=== PATIENT | male | born 1990 | race Caucasian/White ===

== ENCOUNTER 2016-08-31 17:01 | Emergency (ER) | payer BC ==
[2016-08-31 17:50] VITALS: BP 143/63
--- NOTE | 2016-08-31 18:14 | UC ---
Complaint Male HPI - HPI Summary HPI Summary: 26 yo male with 2/10 right testicular pain x 2 days no new partner no dysuria or urethral d/c works for [employer] - History of Current Complaint Chief Complaint: UCGU Stated Complaint: PERSONAL Time Seen by Provider: 08/31/16 18:04 Hx Obtained From: Patient Onset/Duration: Gradual Onset, Lasting Days Timing: Constant Severity Initially: Mild Severity Currently: Mild Pain Intensity: 2 Pain Scale Used: 0-10 Numeric Location: Testicle - posterior right Character: Constant Pressure - dull ache Aggravating Factor(s): Palpation Alleviating Factor(s): Nothing Associated Signs And Symptoms: Positive: Negative - Allergies/Home Medications Allergies/Adverse Reactions: Allergies Allergy/AdvReac Type Severity Reaction Status Date / Time environmental Allergy Congestion Uncoded 08/31/16 17:43 PMH/Surg Hx/FS Hx/Imm Hx Previously Healthy: Yes Endocrine History Of: Denies: Diabetes, Thyroid Disease, Hyperthyroidism, Hypothyroidism, Dyslipidemia Cardiovascular History Of: Denies: Cardiac Disorders, Hypertension, Pacemaker/ICD, Myocardial Infarction , Congestive Heart Failure, Atrial Fibrillation, Deep Vein Thrombosis, Bleeding Disorders Respiratory History Of: Denies: COPD, Asthma, Bronchitis, Pneumonia, Pulmonary Embolism GI/ History Of: Denies: Gastroesophageal Reflux, Ulcer, Gastrointestinal Bleed, Gall Bladder Disease, Kidney Stones, Diverticulitis, Renal Disease, Urosepsis Neurological History Of: Denies: TIA, CVA, Dementia, Seizures, Migraine Psychological History Of: Denies: Anxiety, Depression, Bipolar Disorder, Schizophrenia, Post Traumatic Stress Disorder Cancer History Of: Denies: Lung Cancer, Colorectal Cancer, Breast Cancer, Prostate Cancer, Cervical Cancer Other History Of: Negative For: HIV, Hepatitis B, Hepatitis C, Anticoagulant Therapy - Surgical History Surgical History: Yes Surgery Procedure, Year, and Place: right ACL 2010 or - Family History Known Family History: Negative: Cardiac Disease, Hypertension - Social History Alcohol Use: Occasionally Substance Use Type: None Smoking Status (MU): Former Smoker Review of Systems Constitutional: Negative Skin: Negative Eyes: Negative ENT: Negative Respiratory: Negative Cardiovascular: Negative Gastrointestinal: Negative Genitourinary: Negative Motor: Negative Neurovascular: Negative Musculoskeletal: Negative Neurological: Negative Psychological: Negative All Other Systems Reviewed And Are Negative: Yes Physical Exam Triage Information Reviewed: Yes Appearance: Well-Appearing, No Pain Distress, Well-Nourished Vital Signs: Initial Vital Signs Temp 98.8 F 08/31/16 17:34 Pulse 70 08/31/16 17:34 Resp 20 08/31/16 17:34 BP 143/63 08/31/16 17:34 Pulse Ox 99 08/31/16 17:34 Vital Signs Reviewed: Yes Eyes: Positive: Conjunctiva Clear ENT: Positive: Hearing grossly normal. Negative: Nasal congestion, Nasal drainage, Trismus, Muffled/hoarse voice Neck: Positive: Supple Respiratory: Positive: Normal breath sounds, No respiratory distress, No accessory muscle use, Respiratory distress Cardiovascular: Positive: RRR, No Murmur Abdomen Description: Positive: Other: - testicles- no masses normal lie and orientation right testicle tender epididymis. Negative: CVA Tenderness (R), CVA Tenderness (L), Hernia @ Musculoskeletal: Positive: ROM Intact, No Edema Neurological Exam: Normal Psychological Exam: Normal Complaint Male Course/Dx - Differential Dx/Diagnosis Provider Diagnoses: right epididymitis Discharge - Discharge Plan Condition: Stable Disposition: HOME Prescriptions: DOXYcycline CAP(*) [DOXYcycline 100MG CAP(*)] 100 mg PO BID #14 cap Patient Education Materials: Epididymitis (ED) Referrals: No Primary Care Phys,NOPCP [Primary Care Provider] - Additional Instructions: advil 3 4x day with food as needed recheck for worsening symptoms or if not completely better next week
== END 2016-08-31 18:30 | disposition home or self-care (01) ==
LOC: UCCORT 17:01
DX: N45.1 Epididymitis (principal); Z87.891 Personal history of nicotine dependence
CPT/HCPCS: 87491; 87591; 99212; G0463

== ENCOUNTER 2018-07-02 11:39 | Emergency (ER) | payer OTHER ==
[2018-07-02 12:48] VITALS: BP 149/76
--- NOTE | 2018-07-02 12:50 | UC ---
Knee Pain HPI - HPI Summary HPI Summary: Patient stepped out of a truck, right knee gave out. now has pain surrounding the joint and slight swelling can bear weight but painful - History of Current Complaint Stated Complaint: WC - RIGHT KNEE PAIN Time Seen by Provider: 07/02/18 12:44 Hx Obtained From: Patient Onset/Duration: Sudden Onset, Lasting Hours Severity Initially: Severe Severity Currently: Moderate Character: Aching, Stiffness Aggravating Factor(s): Movement, Weight Bearing, Prolonged Standing, Stairs Alleviating Factor(s): Rest Associated Signs And Symptoms: Positive: Swelling - Allergies/Home Medications Allergies/Adverse Reactions: Allergies Allergy/AdvReac Type Severity Reaction Status Date / Time environmental Allergy Congestion Uncoded 07/02/18 12:41 Home Medications: Home Medications Ibuprofen TAB* [Advil TAB*] 600 mg PO Q6H PRN 07/02/18 [History Confirmed ] PMH/Surg Hx/FS Hx/Imm Hx Previously Healthy: Yes Other History Of: Negative For: HIV, Hepatitis B, Hepatitis C, Anticoagulant Therapy - Surgical History Surgical History: Yes Surgery Procedure, Year, and Place: right ACL 2010 or - Family History Known Family History: Negative: Cardiac Disease, Hypertension - Social History Alcohol Use: Occasionally Substance Use Type: None Smoking Status (MU): Former Smoker Review of Systems All Other Systems Reviewed And Are Negative: Yes Constitutional: Positive: Negative Skin: Positive: Negative Eyes: Positive: Negative ENT: Positive: Negative Respiratory: Positive: Negative Cardiovascular: Positive: Negative Gastrointestinal: Positive: Negative Genitourinary: Positive: Negative Motor: Positive: Negative Neurovascular: Positive: Negative Musculoskeletal: Positive: Arthralgia, Decreased ROM, Edema, Myalgia Neurological: Positive: Negative Psychological: Positive: Negative Is Patient Immunocompromised?: No Physical Exam Triage Information Reviewed: Yes Appearance: Well-Appearing, Well-Nourished, Pain Distress Vital Signs Reviewed: Yes Eye Exam: Normal ENT Exam: Normal Dental Exam: Normal Neck exam: Normal Respiratory Exam: Normal Cardiovascular Exam: Normal Cardiovascular: Positive: RRR, No Murmur, Pulses Normal Abdominal Exam: Normal Abdomen Description: Positive: Nontender, No Organomegaly, Soft Musculoskeletal: Positive: Strength Limited @ - , cant bear full weight, ROM Limited @ - due to pain and swelling, Edema @ - surround the right knee joint Neurological Exam: Normal - pulses sensation and color are normal Psychological Exam: Normal Skin Exam: Normal Knee Pain Course/Dx - Course Course Of Treatment: hx obtained, exam performed ,meds reviewed, xray obtained, immobilizer and cyrus applied, referred to Kushal for foloow up - Differential Dx/Diagnosis Differential Diagnosis/HQI/PQRI: Dislocation, Fracture (Closed), Internal Derangement Of Knee, Sprain, Strain Provider Diagnoses: right knee effusion Discharge - Sign-Out/Discharge Documenting (check all that apply): Patient Departure All imaging exams completed and their final reports reviewed: Yes - Discharge Plan Condition: Stable Disposition: HOME Patient Education Materials: Swollen Knee Joint (ED) Forms: *Work Release Referrals: Lyle Fatima MD [Medical Doctor] - No Primary Care Phys,NOPCP [Primary Care Provider] - Additional Instructions: 1. keep knee in immobilizer and cyrus wrap. 2. COntinue with ibuprofen for pain and swelling. 3. Call Dr Gallo office in the morning, for follow up. - Billing Disposition and Condition Condition: STABLE Disposition: Home - Attestation Statements Provider Attestation: Per institutional requirements, I have reviewed the chart, however, I was not consulted specifically or made aware of this patient by the midlevel provider. I did not personally evaluate, interact with , or disposition this patient.
== END 2018-07-02 13:38 | disposition home or self-care (01) ==
LOC: UCCORT 11:39
DX: M25.461 Effusion, right knee (principal); Z87.891 Personal history of nicotine dependence
CPT/HCPCS: 99213; G0463

== ENCOUNTER → 2018-08-28 05:39 | Day surgery (SDC) | payer OTHER ==
--- NOTE | 2018-08-23 16:39 | HP ---
PREOPERATIVE HISTORY AND PHYSICAL: DATE OF ADMISSION/SURGERY: 08/28/18 DATE OF OFFICE VISIT: 08/22/18 ATTENDING SURGEON: Rick Bender MD * (DICTATED BY KAREN MORRISON) PROCEDURE: Right knee arthroscopic, anterior cruciate ligament reconstruction, partial meniscectomy with autograft. CHIEF COMPLAINT: Right knee. HISTORY OF PRESENT ILLNESS: Yunier is a 28-year-old male who presents to the clinic with right knee pain after a work-related injury that caused an ACL tear and meniscus tear. He has failed conservative measures, therefore, agreed to undergo right knee arthroscopic, anterior cruciate ligament reconstruction, partial meniscectomy with autograft with Dr. Bender on 08/28/18. PAST MEDICAL HISTORY: No current problems. PAST SURGICAL HISTORY: Right knee ACL reconstruction. CURRENT MEDICATIONS: Ibuprofen 200 mg 2 tabs by mouth as needed. ALLERGIES: No known drug allergies. FAMILY HISTORY: Positive for diabetes, heart disease, hypertension, stroke, cancer, RA. SOCIAL HISTORY: He lives [place]. He is a motorcycle delivery driver. He smokes 5 cigarettes a week. He reports occasional alcohol consumption. He exercises occasionally. He is right-hand dominant. REVIEW OF SYSTEMS: A 14-point review of systems was reviewed with the patient. Positive for current complaint, otherwise negative. Denies fever, chills, chest pain, shortness of breath, history of DVT or PE, history of bleeding disorder. PHYSICAL EXAMINATION GENERAL: A 28-year-old well-developed, well-nourished male, in no acute distress. VITAL SIGNS: Height 74, weight 283, pulse 80, blood pressure 130/84, respiratory rate 20, temperature 98.2, BMI 36.3. HEENT: Normocephalic, atraumatic. PERRLA. Throat: Clear. NECK: Supple. PULMONARY: Lungs are clear to auscultation bilaterally. No wheezing, rhonchi, or rales. CARDIO: Regular rate and rhythm. S1, S2. No murmurs, gallops, or rubs. No edema. ABDOMEN: Positive bowel sounds, soft, nontender. NEURO: Alert and oriented x3. Cranial nerves grossly intact. MUSCULOSKELETAL: Right lower extremity, skin is intact. No warmth or erythema. Tenderness over the medial joint line, moderate effusion. Range of motion 3 to 130. Stable to varus and valgus stress. 2B Jesu both guarding. Negative posterior drawer. Calf soft, nontender. +5/5 strength to the ankle dorsiflexion and plantar flexion. +2 DP pulse. Sensation intact to light touch distally. DIAGNOSTIC STUDIES/LAB DATA: MRI revealed ACL tear, few fibers intact. Double PCL sign indicative of bucket-handle medial meniscus tear and a posterolateral meniscus tear and cartilage thinning. IMPRESSION: Right knee anterior cruciate ligament tear and meniscus tear. PLAN: The patient is scheduled to undergo a right knee arthroscopic, anterior cruciate ligament reconstruction, partial meniscectomy with autograft. This is a revision ACL reconstruction with BTB autograft. The patient will follow up 8 days postop for followup and suture removal. Percocet will be used for postoperative pain management and Keflex for antibiotic prophylaxis since the patient has had prior knee surgery. KAREN MORRISON [id number]/[facility] #: [id number] ANGELA
[~2018-08-28 05:39] MED LIST: Buffered Lidocaine 1% SYRIN* 1 ML/SYRINGE INTRADERM ONE; Buffered Lidocaine 1% SYRIN* 1 ML/SYRINGE ONE; Dexamethasone IV* 4 MG/ML 1 ML (4 MG) ONE; Famotidine IV* 10 MG/ML 2 ML (20 mg) IV ONE; Famotidine IV* 10 MG/ML 2 ML (20 mg) ONE; HYDROmorphone INJ1* 1 MG/ML SYRINGE IV PRN; KETAMINE HCL* 50 MG/ML 10 ML VIAL ONE; Ketorolac INJ* 30 MG/ML 1 ML VIAL ONE; Lactated Ringers 1000 ML Bag* 1,000 ML IV SCH; Lidocaine 1% MPF wEPI 200,000* 30 ML SDV ONE; Lidocaine 2% PF * 5 ML VIAL ONE; Midazolam* 1 MG/ML 5 ML VIAL (5 MG) ONE; Naloxone* 0.4 MG/ML 1 ML VIAL IV PRN; Ondansetron INJ* 2 MG/ML VIAL IV PRN; Ondansetron INJ* 2 MG/ML VIAL ONE; Propofol* 10 MG/ML 20 ML BTL ONE; ROPIVACAINE 5 MG/ML 30 ML BTL (0.5%) ONE; ceFAZolin 1 GM ADVAN(*) 1 GM ADDV.VIAL IVPB ONE; ceFAZolin 2 GM PREMIX in ORs 2 GM/50 ML BAG IVPB ONE; fentaNYL* 50 MCG/ML 2 ML VIAL (100 MCG VIAL) ONE; fentaNYL* 50 MCG/ML 5 ML VIAL (250 MCG VIAL) ONE; oxyCODONE/Acetamin 5/325 MG* TAB ONE; oxyCODONE/Acetamin 5/325 MG* TAB PO PRN
[2018-08-28] MEDS: fentaNYL* 50 MCG/ML 2 ML VIAL (100 MCG VIAL) IV PRN ×4 (10:22→11:42)
[2018-08-28 12:36] VITALS: BP 144/79
--- NOTE | 2018-08-28 20:48 | OP ---
CC: PCP (?) DATE OF OPERATION: 08/28/18 - [facility] DATE OF : 89 SURGEON: Rick Bender MD LOCOMOTIVE ENGINEER: KAREN De Jesus. An speech language assistant was needed for the entirety of the case to help with positioning, retraction, and was utilized throughout all portions of the case. ANESTHESIOLOGIST: Dr. Brand. ANESTHESIA: General. PRE-OP DIAGNOSES: 1. Right knee grade 3 anterior cruciate ligament failed repair. 2. Medial meniscus bucket-handle tear. POST-OP DIAGNOSES: 1. Right knee grade 3 ACL failed repair. 2. Medial meniscus bucket-handle tear. 3. Lateral meniscus tear. OPERATIVE PROCEDURE: Right knee arthroscopy with: 1. Partial lateral meniscectomy. 2. Medial meniscus repair. 3. Revision, ACL reconstruction with BTB autograft. 4. Chondroplasty of the patella and the lateral tibial plateau. COMPLICATIONS: None. ESTIMATED BLOOD LOSS: Minimal. TOURNIQUET TIME: 15 minutes, 250 mmHg. IMPLANTS USED: Two Doe and Nephew Fast-Fix, one Doe and Nephew SoftSilk 7 x 20, and one Synthes 4.5 mm cortex screw with appropriate length for the washer. INDICATIONS: Yunier Patrick is a 28-year-old male who presents with a work- related injury to his knee that he has sustained in June. He was diagnosed with a medial and lateral meniscus tear, as well as a torn ACL reconstruction. After extensive discussion of the risks and benefits of the surgery, risks and benefits were discussed at length and included, but not limited to bleeding; infection; damage to nerves, vessels, surrounding structures; wound nonhealing; persistent pain; need for further surgery; scarring; stiffness; incomplete relief of symptoms; nonhealing of the meniscus, failure of the repair. DESCRIPTION OF PROCEDURE: The patient was greeted in the preoperative area by the attending surgeon. Correct extremity was marked and consent was confirmed. The patient was then brought back to the operating suite where he was placed in supine position on the operating table and underwent general anesthesia and LMA intubation, after which he was appropriately positioned on the bed. The lateral post was positioned and unsterile tourniquet was placed high on the proximal thigh. The beanbag was placed to keep the knee at 90 degrees. The right leg was then prepped and draped in the usual sterile fashion, beginning with chlorhexidine soap scrub and alcohol wipe and a final prep with ChloraPrep. After appropriate surgical pause indicating side, site, procedure, and administration of antibiotics, the knee was intra-articularly injected with 1% lidocaine with epi. The Esmarch was used to exsanguinate the limb and the midline incision centered over the treating medial over the patellar tendon was made sharply with a #15 blade. Soft tissues were carefully dissected to expose the peritenon and was just saved as a layer for later closure. The patellar tendon was visualized. It was found to be a 40 mm in width. The center 10 mm was then harvested using a #10 blade for full-thickness flaps. Proximally the patellar bone block was harvested for 9 x 23 mm using a sagittal saw and osteotome. Distally, the tibial bone block with 10 x 35 mm, again with using a sagittal saw and the osteotome. The graft was carried on the back table by the speech language assistant while the surgeon deflated the tourniquet and started closing the tendon with 0-Vicryl in interrupted fashion. At this point, attention was directed to the arthroscopy. An 11-blade was used to make in incision in the capsule and the scope was brought into the joint. The joint was examined. There was abundant synovitis anteriorly. An anteromedial portals was made using an 11-blade and shaver was used to debride back the synovitis. The ACL was completely ruptured and scarred to the PCL. There was chondrosis in the patella that has been evident as well as along the medial femoral condyle. There was obvious displaced bucket- handle flap in the medial meniscus. This was then gently reduced with the leg in gentle flexion and valgus stress. Once this was reduced, it was determined that this was borderline quality; at some portions, it was in the white-white zone, but there is some portions in the red-white zone. Decision was made to repair this as he is 28 years old. At this point, the meniscus rasp was used to rasp the tissues. Up through the lateral portal, the Doe and Nephrew Fast -Fix was placed. Two of them placed to secure the meniscus fragment. This allowed for a stable fixation. The final images were obtained. Attention was directed to the lateral compartment. The knee was then placed in figure-of- four position. There is tearing of the meniscus root as well as the body of the meniscus. This was an abnormal tear. It appeared to be part radial split, part longitudinal. The portion that is intact was left and a partial meniscectomy was done using biters and nehemias to debride down to stable flaps, as well as the root. A small chondroplasty was done in the lateral plateau as he had grade 2 changes.. The lateral femoral condyle had grade 1 changes. Medial femoral condyle had grade 1 changes formed medially where there were areas of grade 2 changes. This was debrided back using a shaver. The medial plateau had grade 1 to 2 changes. The knee was placed to full extension. The patella was examined. There were some areas of grade 0 changes, grade 2 changes , which were debrided back. Medial and lateral gutters were without loose debris. Attention was then directed to the ACL. With the knee placed in 90 degrees, the lateral footprint was then prepared. The previous tunnel was found to be high and posterior . Because of his transtibial fixation, a starting awl was then used to viviane the position of tunnel site. It was used a pilot instructor hole for reference point, checked by changing the scope from the lateral compartment and the medial compartment. Once this was done, attention was directed to tibial tunnel. With the tip-to-tip guide placed around 52 degrees, the center guidewire was placed in the center of the footprint. This was found to be slightly on the posterior aspect of the original tunnel. This was then drilled to 10 mm full- bore reamer. The quality of the tunnel was pretty good. The shaver was used to remove any excess debris. The rasp was then used to rasp the edges to allow for easy graft passage. Care was placed to prevent fluid egress. The knee was then placed in hyperflexion. Doe and Nephew starting awl was then brought through the anteromedial portal and placed in the center where the footprint should be. The Beath pin was then placed instead of footprint. This was confirmed. Then, a size 9 mm low profile reamer was placed and drilled to just about 25 mm. The patella was checked. All excess bone and debris was removed. The tunnel was checked and carefully notched. The Ethibond was then placed through the island of the Beath pin and advanced through the lateral aspect of the thigh and then in anterograde fashion to the tunnel. The graft was then brought from the back table, and passed under direct and arthroscopic visualization to be well seated in femoral tunnel. This was then secured with a 7 x 20 mm SoftSilk screw with excellent purchase. The knee was then taken to full extension. The tones did not impinge. The knee was then cycled approximately 15 times with no evidence of creep, stretching, or tearing of the graft. The graft was then visualized and the scope was placed in the joint to make sure that is still appropriately placed. Then, with tension on the tibial sutures, a screw was attempted to be placed. The patient had a very strong cortical bone and it was a well fitting bone tunnel piece. Decision was made to do substantial fixation as that was a well-fitted piece and the screw would now pass without possibly breaking the bone block. Therefore, using the 3.2 drill bit by [employer], the appropriate length screw, 4.5 fully cortex screw with a washer was then placed. The sutures were then passed that had been previously passed through the graft around the post and then tied down. The washer post was then secured and this allowed for stable screw fixation. The knee was taken to full range of motion. His walking was assessed and found to be stable. The scope was brought back to the joint and examined. Final images were obtained, the wounds were then copiously irrigated. The excess bone graft was placed in the bone defect getting on the patella. The peritenon was closed with 2-0 Vicryl in a running fashion. The skin was closed in layers with 3-0 Monocryl. Sterile dressings were applied. The knee was intra-articularly and superficially injected with 0.2% ropivacaine. A Cryo/Cuff and a hinged knee brace was applied. He was awoken from anesthesia and transferred to PACU in stable condition. POSTOPERATIVE PLAN: He will be nonweightbearing for 4 weeks. Range of motion 0 to 90 degrees. Discharged on pain medications and antibiotics. DVT prophylaxis considered and he was placed on ASA 325 mg, but deferred due to no previous personal or family history. I will see the patient back in 6 to 8 days. [id number]/[facility] #: [id number] ANGELA
== END | disposition home or self-care (01) ==
LOC: OR 05:39
PROVIDERS: ATTEND Orthopaedic Surgery
DX: S83.511A Sprain of anterior cruciate ligament of right knee, initial encounter (principal); S83.211A Bucket-handle tear of medial meniscus, current injury, right knee, initial encounter; S83.281A Other tear of lateral meniscus, current injury, right knee, initial encounter; X58.XXXA Exposure to other specified factors, initial encounter; Y92.9 Unspecified place or not applicable; Y99.0 Civilian activity done for income or pay; Z72.0 Tobacco use
CPT/HCPCS: A9270-GY; C1713; C1776; J0690; J1100; J1885; J2001; J2250; J2405; J2704; J2795; J3010

== ENCOUNTER 2019-05-01 18:47 | Emergency (ER) | payer SELFPAY ==
[2019-05-01 19:39] VITALS: BP 135/83
[2019-05-01] MEDS ORDERED: Amoxicillin PO (*) 250 MG CAP PO ONE (19:57)
[2019-05-01] MEDS ORDERED: Amoxicillin PO (*) 500 MG CAP PO ONE (19:58)
--- NOTE | 2019-05-01 19:58 | UC ---
Throat Pain/Nasal Prasad HPI - HPI Summary HPI Summary: 29 yo male with sore throat and feverish x 1-2 day no N/V - History of Current Complaint Chief Complaint: UCRespiratory Stated Complaint: SORE THROAT Time Seen by Provider: 05/01/19 19:28 Hx Obtained From: Patient Onset/Duration: Gradual Onset, Lasting Days Severity: Mild Pain Intensity: 4 Pain Scale Used: 0-10 Numeric Cough: None Associated Signs & Symptoms: Positive: Negative, Fever - Epiglottits Risk Factors Epiglottis Risk Factors: Negative - Allergies/Home Medications Allergies/Adverse Reactions: Allergies Allergy/AdvReac Type Severity Reaction Status Date / Time environmental Allergy Congestion Uncoded 05/01/19 19:34 PMH/Surg Hx/FS Hx/Imm Hx Previously Healthy: Yes Other History Of: Negative For: HIV, Hepatitis B, Hepatitis C, Anticoagulant Therapy - Surgical History Surgical History: Yes Surgery Procedure, Year, and Place: Right ACL and Meniscus, ~2011, [place] - Family History Known Family History: Negative: Cardiac Disease, Hypertension - Social History Alcohol Use: Occasionally Alcohol Amount: 2 Substance Use Type: None Smoking Status (MU): Heavy Every Day Tobacco Smoker Type: Cigarettes Amount Used/How Often: 1 PPD Length of Time of Smoking/Using Tobacco: Since Age 19 Have You Smoked in the Last Year: Yes Review of Systems All Other Systems Reviewed And Are Negative: Yes Constitutional: Positive: Fever - gabriela, Chills, Fatigue Eyes: Positive: Negative ENT: Positive: Negative Respiratory: Positive: Negative Cardiovascular: Positive: Negative Gastrointestinal: Positive: Negative Genitourinary: Positive: Negative Motor: Positive: Negative Neurovascular: Positive: Negative Musculoskeletal: Positive: Negative Neurological: Positive: Negative Psychological: Positive: Negative Physical Exam Triage Information Reviewed: Yes Appearance: Well-Appearing, No Pain Distress, Well-Nourished Vital Signs: Initial Vital Signs Temp 99.3 F 05/01/19 19:33 Pulse 102 05/01/19 19:33 Resp 18 05/01/19 19:33 BP 135/83 05/01/19 19:33 Pulse Ox 97 05/01/19 19:33 Vital Signs Reviewed: Yes Eyes: Positive: Conjunctiva Clear ENT: Positive: Hearing grossly normal. Negative: Nasal congestion, Nasal drainage, Muffled voice, Hoarse voice Neck: Positive: Supple, Nontender Respiratory: Positive: Lungs clear, Normal breath sounds, No respiratory distress Cardiovascular: Positive: RRR, No Murmur Musculoskeletal: Positive: ROM Intact, No Edema Neurological: Positive: Alert Psychological Exam: Normal Skin Exam: Normal Throat Pain/Nasal Course/Dx - Differential Dx/Diagnosis Provider Diagnosis: Strep pharyngitis Discharge ED - Sign-Out/Discharge Documenting (check all that apply): Patient Departure All imaging exams completed and their final reports reviewed: No Studies - Discharge Plan Condition: Stable Disposition: HOME Prescriptions: Amoxicillin PO (*) [Amoxicillin 875 MG (*)] 875 mg PO BID #20 tab Patient Education Materials: Strep Throat (DC) Referrals: No Primary Care Phys,NOPCP [Primary Care Provider] - - Billing Disposition and Condition Condition: STABLE Disposition: Home
== END 2019-05-01 20:07 | disposition home or self-care (01) ==
LOC: UCCORT 18:47
DX: J02.0 Streptococcal pharyngitis (principal); F17.210 Nicotine dependence, cigarettes, uncomplicated
CPT/HCPCS: 87651; 99212; A9270-GY; G0463